=== PATIENT | female | born 1990 | race Caucasian/White ===

== ENCOUNTER 2020-02-18 12:06 | Emergency (ER) | payer MEDICAID ==
[~2020-02-18] VITALS: Ht 172.7 cm; Wt 68.0 kg
[2020-02-18 12:09] VITALS: BP_SYST 125
[2020-02-18] MEDS ORDERED: LORazepam 1 MG TABLET PO ONE (12:30)
[2020-02-18 13:49] VITALS: BP_SYST 125
== END 2020-02-18 13:48 | disposition home or self-care (01) ==
LOC: SED 12:06
DX: F15.10 Other stimulant abuse, uncomplicated (principal); F17.200 Nicotine dependence, unspecified, uncomplicated
CPT/HCPCS: 99283